=== PATIENT | male | born 1950 | race Caucasian/White ===

== ENCOUNTER 2020-03-27 11:13 | Emergency (ER) | payer MEDICARE, OTHER, SELFPAY ==
[2020-03-27 11:19] VITALS: BP 155/92; PULSE 80; RESP 21; TEMP 36.4; BMI 29.5
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
[2020-03-27 11:26] VITALS: O2SAT 93
--- NOTE | 2020-03-27 11:26 | NURSING ---
NO OLD EKGS
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
--- NOTE | 2020-03-27 11:27 | NURSING ---
CALLED [facility]QU[facility], 30 MIN ETA
[2020-03-27 11:28] VITALS: O2SAT 95
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
[2020-03-27] MEDS: Ondansetron 4 MG/2 ML Vial IV (11:33)
[2020-03-27] MEDS: 0.9% Normal Saline 1,000 ML 1000 ML IV (11:33)
[2020-03-27] MEDS: Morphine 4 MG/ML Syringe IV (11:33)
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
[2020-03-27 11:51] LABS: Prothrombin Time (Protime)PT. 13.1 SECONDS (11.7-14.9)
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
[2020-03-27 11:53] LABS: Partial Thromboplast Time 24.3 Seconds (24.1-36.2)
[2020-03-27 11:54] LABS: Hematocrit 47.2 % (40-54); Hemoglobin 15.5 g/dL (13.0-16.5); Mean Corp Hgb Conc 32.8 g/dL (32-36); Mean Corpuscular Hgb 30.8 pg (27.0-32.0); Mean Corpuscular Volume 93.7 fL (80-94); Mean Platelet Vol. 9.3 fl (6.2-12.0); Platelet Count 304 K/mm3 (150-450); RBC Distribution Width CV 12.8 % (11.6-14.6); Red Blood Count 5.04 M/mm3 (4.6-6.2); White Blood Count 23.6 K/mm3 (4.4-11.0)
[2020-03-27 12:00] LABS: AST(SGOT) 30 U/L (15-37); Alanine Aminotransfer ALT/SGPT 32 U/L (16-61); Albumin, Serum 3.9 g/dL (3.2-5.0); Alkaline Phosphatase 80 U/L (45-117); Anion Gap 8 (5-15); BUN 17 mg/dL (7-18); BUN/Creat Ratio 14.2 RATIO (10-20); Chloride 104 mmol/L (98-107); EST Glomerular Filtration Rate 64 mL/min (>60); Est Glom Filt Rate - Afr Amer 77 mL/min (>60); Estimated Creatinine Clearance 58.92 ml/min; Globulin 3.9 g/dL (2.2-4.2); Glucose 136 mg/dL (74-106); Lipase 181 U/L (73-393); Potassium 3.4 mmol/L (3.5-5.1); Protein, Total 7.8 g/dL (6.4-8.2); Sodium Level 139 mmol/L (136-145)
[2020-03-27 12:03] VITALS: BP 130/84; PULSE 91; RESP 20; O2SAT 95
[2020-03-27] MEDS: Diphth,Pertuss(Acell),Tet Vac 0.5 ML Vial IM (12:06)
[2020-03-27] MEDS: Cefazolin 1 GM/50 ML BAG IV (12:07)
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
== END 2020-03-27 12:50 | disposition short-term general hospital (02) ==
LOC: ED 11:44
PROVIDERS: Emergency Provider Emergency Medicine; PCP Family Medicine
DX: S09.90XA Unspecified injury of head, initial encounter (principal); G89.11 Acute pain due to trauma; M54.5 Low back pain; S22.20XA Unspecified fracture of sternum, initial encounter for closed fracture; S60.222A Contusion of left hand, initial encounter; S70.01XA Contusion of right hip, initial encounter; S70.02XA Contusion of left hip, initial encounter; S61.412A Laceration without foreign body of left hand, initial encounter; V43.52XA Car driver injured in collision with other type car in traffic accident, initial encounter; Y92.410 Unspecified street and highway as the place of occurrence of the external cause; Z23 Encounter for immunization; Z87.891 Personal history of nicotine dependence
CPT/HCPCS: 70450; 71260; 72125; 73080; 73130; 74177; 80053; 80320; 83690; 84484; 85027; 85610; 85730; 90715; 93005; 96365; 96375; 99285; J7030; Q9967; A4216; G0480; J2405

== ENCOUNTER 2020-04-02 14:56 | Inpatient (IN) | payer MEDICARE, OTHER, SELFPAY ==
[2020-04-02 15:12] VITALS: BP 148/97; PULSE 90; RESP 16; TEMP 36.4; O2SAT 95; BMI 28.5
[2020-04-02 15:55] VITALS: BMI 28.5
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
[2020-04-02] MEDS: oxyCODONE 5 MG Tablet PO ×2 (18:48→22:51)
[2020-04-02 19:10] VITALS: O2SAT 95
[2020-04-02 21:00] VITALS: PULSE 90; RESP 16; TEMP 36.6; O2SAT 95; O2SAT 96
[2020-04-02] MEDS: Senna/Docusate Sodium 1 Tablet 2 TABLET PO (21:15)
[2020-04-02] MEDS: Magnesium Hydroxide 30 ML UDC PO (21:15)
[2020-04-02] MEDS: Acetaminophen 500 MG Tablet 1000 MG PO (21:15)
[2020-04-02] MEDS: Enoxaparin 30 MG/0.3 ML Syringe SC (21:15)
[2020-04-02] MEDS: BACITRACIN 15 GM Tube 1 APPLIC TOPICAL (21:16)
[2020-04-02] MEDS: cycloBENZAPRine HCl 10 MG Tablet PO (21:18)
[2020-04-02 23:03] LABS: Bacteria 0 SEEN /hpf (None Seen); Mucous, Urine 0 SEEN /hpf (<or=2+); Squamous Epithelial Cells - UA 0 SEEN /hpf (0-5)
[2020-04-02 23:07] LABS: Color, Urine Yellow (Yellow); Glucose, Dipstick Normal (Normal); Ketone-Dipstick Negative (Negative); Leukocyte Esterase-Dipstick 25 /ul (Negative); Nitrite-Dipstick Negative (Negative); Occult Blood-Urine 150 /ul (Negative); Protein-Dipstick 30 mg/dl (Negative); Specific Gravity, Urine 1.025 (1.002-1.030); Urine Bilirubin Dipstick Negative (Negative); Urine Clarity Clear (Clear); Urine Urobilinogen Normal (Normal)
[2020-04-02 23:21] LABS: Red Blood Cells-Urine 5-10 SEEN /hpf (0-5); White Blood Cells 0-5 SEEN /hpf (0-5)
[2020-04-03 03:35] VITALS: BP 151/91; PULSE 85; RESP 16; TEMP 36.6; O2SAT 69
[2020-04-03] MEDS: oxyCODONE 5 MG Tablet PO ×2 (03:48→07:56)
--- NOTE | 2020-04-03 04:21 | NURSING ---
pt awake and medicated for pain. staff made several attempts to to get pt oob to the bsc and pt unable to tolerate the pain. pt was uncomfortable with hob up greater than 25 degrees. pt reports that the pain is intense to the rt hip. abraded areas to the lt elbow and upper arm were cleansed and dressed to protect the scabs from rubbing off
[2020-04-03] MEDS: BACITRACIN 15 GM Tube 1 APPLIC TOPICAL ×2 (05:08→20:52)
[2020-04-03] MEDS: Acetaminophen 500 MG Tablet 1000 MG PO ×3 (05:10→20:53)
[2020-04-03] MEDS: cycloBENZAPRine HCl 10 MG Tablet PO ×3 (05:10→20:54)
[2020-04-03] MEDS: Lidocaine 5% Patch 1 PATCH TOPICAL (07:54)
[2020-04-03] MEDS: Tamsulosin HCl 0.4 MG Capsule PO (07:55)
[2020-04-03] MEDS: Polyethylene Glycol 3350 17 GM PACKET PO (07:55)
[2020-04-03] MEDS: Senna/Docusate Sodium 1 Tablet 2 TABLET PO ×2 (07:55→20:53)
[2020-04-03] MEDS: Enoxaparin 30 MG/0.3 ML Syringe SC ×2 (07:56→20:53)
[2020-04-03 08:32] LABS: Hematocrit 39.2 % (40-54); Hemoglobin 12.6 g/dL (13.0-16.5); Mean Corp Hgb Conc 32.1 g/dL (32-36); Mean Corpuscular Hgb 30.3 pg (27.0-32.0); Mean Corpuscular Volume 94.2 fL (80-94); Mean Platelet Vol. 8.7 fl (6.2-12.0); Platelet Count 295 K/mm3 (150-450); RBC Distribution Width CV 13.2 % (11.6-14.6); RBC Distribution Width SD 45.6 fl (35.1-43.9); Red Blood Count 4.16 M/mm3 (4.6-6.2); White Blood Count 13.9 K/mm3 (4.4-11.0)
[2020-04-03 09:03] LABS: ALB/GLOB Ratio 0.8 RATIO (0.9-2.4); AST(SGOT) 101 U/L (15-37); Alanine Aminotransfer ALT/SGPT 169 U/L (16-61); Albumin, Serum 3.1 g/dL (3.2-5.0); Alkaline Phosphatase 74 U/L (45-117); Anion Gap 5 (5-15); BUN 18 mg/dL (7-18); BUN/Creat Ratio 22.4 RATIO (10-20); Calcium,Total 8.6 mg/dL (8.5-10.1); Chloride 104 mmol/L (98-107); EST Glomerular Filtration Rate 101 mL/min (>60); Est Glom Filt Rate - Afr Amer 122 mL/min (>60); Estimated Creatinine Clearance 88.38 ml/min; Glucose 173 mg/dL (74-106); Magnesium 2.5 mg/dL (1.6-2.6); Phosphorus 3.1 mg/dL (2.5-4.9); Potassium 3.9 mmol/L (3.5-5.1); Protein, Total 7.1 g/dL (6.4-8.2); Sodium Level 137 mmol/L (136-145)
--- NOTE | 2020-04-03 09:49 | NURSING ---
Per Dr. Gilbert Oxy increased to 10mg q4hr PRN.
[2020-04-03 10:00] VITALS: BP 145/85; PULSE 95; RESP 18; TEMP 37.3; O2SAT 95
--- NOTE | 2020-04-03 10:19 | NURSING ---
TONYA for Dr. Pinzon and Dr. Tao's office, asking if Rehab could send xrays, being the patient is currently immobile and is to F/U in one week at their facility. Waiting for call back.
--- NOTE | 2020-04-03 10:21 | NURSING ---
Spoke with Dr. Vidal office, received approval to have Xrays sent on disc of 3 views of the right ankle, to their facility. Will make Dr. Gilbert aware.
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
--- NOTE | 2020-04-03 11:20 | NURSING ---
Dr. Tao's office returned called stating xray for left hand 3 view can be ordered and to send xray on disc to their facility.
[2020-04-03] MEDS: oxyCODONE 5 MG Tablet 10 MG PO (11:51)
[2020-04-03 12:16] VITALS: O2SAT 96
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
[2020-04-03] MEDS: Bisacodyl 5 MG Tablet 10 MG PO (15:33)
[2020-04-03] MEDS: predniSONE 20 MG Tablet 60 MG PO (15:34)
[2020-04-03 15:43] LABS: Hemoglobin A1c 5.6 % (3.8-5.6)
[2020-04-03 16:36] LABS: Bedside Glucose 96 mg/dL (70-110)
[2020-04-03 20:31] LABS: Bedside Glucose 157 mg/dL (70-110)
[2020-04-03] MEDS: Meloxicam 7.5 MG Tablet PO (20:53)
[2020-04-03] MEDS: Zolpidem Tartrate 5 MG Tablet PO (20:54)
[2020-04-03 20:55] VITALS: BP 145/91; PULSE 87; RESP 20; TEMP 36.4; O2SAT 95
[2020-04-04] MEDS: oxyCODONE 5 MG Tablet 10 MG PO ×2 (00:06→13:25)
--- NOTE | 2020-04-04 00:57 | NURSING ---
pt still has had no bm and dulcolax suppository was given. pt started smearing stool. pt remains painful with movement and is encouraged to have hob elevated to 30 degrees to to improve pt mobility to his back. 0030 pt requested to be placed back on the bedpan, and only had a small amt of liquid stool. pt abd is soft and nontender with bs present x's 4 quads. pt denied nausea. pt is reluctant to turn in the bed and coccyx is noted to be more red than yesterday. new mepilex was applied to pt bottom d/t being soiled with stool.
--- NOTE | 2020-04-04 01:15 | NURSING ---
pt removed from bedpan and a small amt of liquid stool was noted, when cleansing pt is noted to have some edema to his penis which was not noted yesterday. pt repositioned to his lt side for comfort
[2020-04-04] MEDS: Acetaminophen 500 MG Tablet 1000 MG PO ×3 (05:29→21:51)
[2020-04-04] MEDS: BACITRACIN 15 GM Tube 1 APPLIC TOPICAL ×2 (05:29→21:51)
[2020-04-04] MEDS: cycloBENZAPRine HCl 10 MG Tablet PO ×3 (05:30→21:52)
[2020-04-04 06:35] LABS: Bedside Glucose 109 mg/dL (70-110)
[2020-04-04 07:01] VITALS: O2SAT 94
[2020-04-04 08:32] VITALS: BP 155/99; PULSE 94; RESP 16; TEMP 36.6; O2SAT 100
[2020-04-04] MEDS: Polyethylene Glycol 3350 17 GM PACKET PO (08:33)
[2020-04-04] MEDS: Lidocaine 5% Patch 1 PATCH TOPICAL (08:35)
[2020-04-04] MEDS: Senna/Docusate Sodium 1 Tablet 2 TABLET PO ×2 (08:35→21:52)
[2020-04-04] MEDS: Pantoprazole Sodium 40 MG Tablet PO (08:36)
[2020-04-04] MEDS: predniSONE 20 MG Tablet 60 MG PO (08:36)
[2020-04-04] MEDS: Meloxicam 7.5 MG Tablet PO ×2 (08:36→21:52)
[2020-04-04] MEDS: Tamsulosin HCl 0.4 MG Capsule PO (08:37)
[2020-04-04] MEDS: Enoxaparin 30 MG/0.3 ML Syringe SC ×2 (08:37→21:52)
--- NOTE | 2020-04-04 10:21 | CASEMGMT ---
Social Work IDT met with patient and via conference call for Team meeting. Discussed patient's progress in therapy. Pt is very painful. Therapy working pt to sit EOB, but cannot sitting upward. Pt is x2 assist for bed mobility and working on ROM for UE and LE. Explained Medicare approved 17 days with [facility] 04/19. The goal is for pt to return home with . Will ReTeam and continue to follow. Laura Cedillo ,CONSULTING TECHNICAL MANAGER OCCUPATIONAL HYGIENIST
--- NOTE | 2020-04-04 11:16 | NURSING ---
Dr Jackson consulted
[2020-04-04] MEDS: Gabapentin 300 MG Capsule PO ×2 (12:19→17:13)
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
[2020-04-04] MEDS: Nystatin Powder 15gm Bottle 1 APPLIC TOPICAL ×2 (15:53→21:52)
[2020-04-04 16:35] LABS: Bedside Glucose 148 mg/dL (70-110)
[2020-04-04] MEDS: Magnesium Citrate 300 ML PO (18:57)
[2020-04-04 19:17] VITALS: BP 134/84; PULSE 98; RESP 18; TEMP 36.7; O2SAT 94
[2020-04-04 19:25] VITALS: PULSE 98; RESP 18; O2SAT 94
[2020-04-04] MEDS: Menthol/Lanolin/Calamine/Znox 113 GM Tube 1 APPLIC TOPICAL (21:52)
[2020-04-04] MEDS: Zolpidem Tartrate 5 MG Tablet PO (21:52)
--- NOTE | 2020-04-05 02:19 | NURSING ---
Reviewed and agree with FRUIT PRESERVER documentation and charting.
[2020-04-05] MEDS: cycloBENZAPRine HCl 10 MG Tablet PO ×3 (06:05→21:45)
[2020-04-05] MEDS: Acetaminophen 500 MG Tablet 1000 MG PO ×3 (06:05→21:43)
[2020-04-05] MEDS: BACITRACIN 15 GM Tube 1 APPLIC TOPICAL ×2 (06:06→21:45)
[2020-04-05 07:47] VITALS: BP 147/93; PULSE 90; RESP 18; TEMP 36.4; O2SAT 94
[2020-04-05] MEDS: Polyethylene Glycol 3350 17 GM PACKET PO (09:05)
[2020-04-05] MEDS: oxyCODONE 5 MG Tablet 10 MG PO (09:05)
[2020-04-05] MEDS: Lidocaine 5% Patch 1 PATCH TOPICAL (09:05)
[2020-04-05] MEDS: Enoxaparin 30 MG/0.3 ML Syringe SC ×2 (09:05→21:57)
[2020-04-05] MEDS: Pantoprazole Sodium 40 MG Tablet PO (09:06)
[2020-04-05] MEDS: Gabapentin 300 MG Capsule PO ×3 (09:06→17:55)
[2020-04-05] MEDS: predniSONE 20 MG Tablet 60 MG PO (09:06)
[2020-04-05] MEDS: Senna/Docusate Sodium 1 Tablet 2 TABLET PO ×2 (09:08→21:44)
[2020-04-05] MEDS: Tamsulosin HCl 0.4 MG Capsule PO (09:09)
[2020-04-05] MEDS: Menthol/Lanolin/Calamine/Znox 113 GM Tube 1 APPLIC TOPICAL ×2 (09:09→21:48)
[2020-04-05] MEDS: Nystatin Powder 15gm Bottle 1 APPLIC TOPICAL ×2 (09:09→21:44)
[2020-04-05] MEDS: Meloxicam 7.5 MG Tablet PO ×2 (09:10→21:45)
[2020-04-05] MEDS: Magnesium Hydroxide 30 ML UDC PO (09:13)
[2020-04-05 19:31] VITALS: BP 169/93; PULSE 98; RESP 18; TEMP 37.1; O2SAT 95
[2020-04-05 21:23] VITALS: BP 138/88; PULSE 92
[2020-04-05] MEDS: Zolpidem Tartrate 5 MG Tablet PO (21:45)
[2020-04-06] MEDS: cycloBENZAPRine HCl 10 MG Tablet PO ×3 (05:39→22:14)
[2020-04-06] MEDS: Acetaminophen 500 MG Tablet 1000 MG PO ×3 (05:39→22:15)
[2020-04-06] MEDS: BACITRACIN 15 GM Tube 1 APPLIC TOPICAL ×2 (05:40→22:13)
[2020-04-06 07:11] LABS: Bedside Glucose 97 mg/dL (70-110)
[2020-04-06 08:10] VITALS: BP 139/80; PULSE 77; RESP 16; TEMP 36.8; O2SAT 94
[2020-04-06] MEDS: Gabapentin 300 MG Capsule PO ×3 (08:31→17:27)
[2020-04-06] MEDS: predniSONE 20 MG Tablet 60 MG PO (08:32)
[2020-04-06] MEDS: Lidocaine 5% Patch 1 PATCH TOPICAL (08:32)
[2020-04-06] MEDS: Polyethylene Glycol 3350 17 GM PACKET PO (08:34)
[2020-04-06] MEDS: Tamsulosin HCl 0.4 MG Capsule PO (08:34)
[2020-04-06] MEDS: Enoxaparin 30 MG/0.3 ML Syringe SC ×2 (08:35→22:14)
[2020-04-06] MEDS: Pantoprazole Sodium 40 MG Tablet PO (08:35)
[2020-04-06] MEDS: Senna/Docusate Sodium 1 Tablet 2 TABLET PO ×2 (08:35→22:15)
[2020-04-06] MEDS: Meloxicam 7.5 MG Tablet PO ×2 (08:36→22:14)
[2020-04-06] MEDS: oxyCODONE 5 MG Tablet 10 MG PO ×3 (08:56→22:14)
[2020-04-06] MEDS: Menthol/Lanolin/Calamine/Znox 113 GM Tube 1 APPLIC TOPICAL ×2 (08:57→22:13)
[2020-04-06] MEDS: Nystatin Powder 15gm Bottle 1 APPLIC TOPICAL ×2 (08:57→22:14)
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
[2020-04-06] MEDS: busPIRone 5 MG Tablet PO ×2 (17:27→22:13)
[2020-04-06 22:00] VITALS: BP 139/86; PULSE 93; RESP 17; TEMP 37.2; O2SAT 97
[2020-04-06] MEDS: Zolpidem Tartrate 5 MG Tablet PO (22:13)
[2020-04-07 06:26] LABS: Bedside Glucose 82 mg/dL (70-110)
[2020-04-07] MEDS: BACITRACIN 15 GM Tube 1 APPLIC TOPICAL ×2 (06:53→22:00)
[2020-04-07] MEDS: busPIRone 5 MG Tablet PO ×3 (06:53→22:00)
[2020-04-07] MEDS: cycloBENZAPRine HCl 10 MG Tablet PO ×3 (06:54→21:59)
[2020-04-07] MEDS: oxyCODONE 5 MG Tablet 10 MG PO ×3 (06:54→21:58)
[2020-04-07] MEDS: Acetaminophen 500 MG Tablet 1000 MG PO ×3 (06:54→21:57)
[2020-04-07] MEDS: Enoxaparin 30 MG/0.3 ML Syringe SC ×2 (07:40→21:59)
[2020-04-07] MEDS: predniSONE 20 MG Tablet 60 MG PO (07:40)
[2020-04-07] MEDS: Polyethylene Glycol 3350 17 GM PACKET PO (07:40)
[2020-04-07] MEDS: Gabapentin 300 MG Capsule PO ×3 (07:41→17:13)
[2020-04-07] MEDS: Tamsulosin HCl 0.4 MG Capsule PO (07:41)
[2020-04-07] MEDS: Lidocaine 5% Patch 1 PATCH TOPICAL (07:42)
[2020-04-07] MEDS: Meloxicam 7.5 MG Tablet PO ×2 (07:42→21:59)
[2020-04-07] MEDS: Senna/Docusate Sodium 1 Tablet 2 TABLET PO ×2 (07:43→21:57)
[2020-04-07] MEDS: Pantoprazole Sodium 40 MG Tablet PO (07:43)
[2020-04-07] MEDS: Menthol/Lanolin/Calamine/Znox 113 GM Tube 1 APPLIC TOPICAL ×2 (07:43→21:30)
[2020-04-07] MEDS: Nystatin Powder 15gm Bottle 1 APPLIC TOPICAL ×2 (07:44→21:59)
[2020-04-07 08:41] VITALS: BP 149/93; PULSE 74; RESP 16; TEMP 36.5; O2SAT 97
[2020-04-07 19:29] VITALS: BP 152/85; PULSE 90; RESP 17; TEMP 36.7; O2SAT 95
[2020-04-07 22:00] VITALS: PULSE 88; RESP 17; O2SAT 95
[2020-04-07] MEDS: Zolpidem Tartrate 5 MG Tablet PO (22:00)
[2020-04-08] MEDS: BACITRACIN 15 GM Tube 1 APPLIC TOPICAL ×2 (05:51→22:13)
[2020-04-08] MEDS: oxyCODONE 5 MG Tablet 10 MG PO ×3 (05:52→22:15)
[2020-04-08] MEDS: Acetaminophen 500 MG Tablet 1000 MG PO ×3 (05:52→22:14)
[2020-04-08] MEDS: busPIRone 5 MG Tablet PO ×3 (05:52→22:13)
[2020-04-08] MEDS: cycloBENZAPRine HCl 10 MG Tablet PO ×3 (05:52→22:14)
[2020-04-08] MEDS: Pantoprazole Sodium 40 MG Tablet PO (07:50)
[2020-04-08] MEDS: Gabapentin 300 MG Capsule PO (07:51)
[2020-04-08] MEDS: predniSONE 20 MG Tablet PO (07:51)
[2020-04-08] MEDS: Menthol/Lanolin/Calamine/Znox 113 GM Tube 1 APPLIC TOPICAL ×2 (07:51→22:13)
[2020-04-08] MEDS: Nystatin Powder 15gm Bottle 1 APPLIC TOPICAL ×2 (07:51→21:40)
[2020-04-08] MEDS: Meloxicam 7.5 MG Tablet PO ×2 (07:51→22:14)
[2020-04-08] MEDS: Enoxaparin 30 MG/0.3 ML Syringe SC ×2 (07:52→22:14)
[2020-04-08] MEDS: Senna/Docusate Sodium 1 Tablet 2 TABLET PO ×2 (07:53→22:14)
[2020-04-08 08:00] VITALS: BP 150/92; PULSE 82; RESP 16; TEMP 36.6; O2SAT 94
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
[2020-04-08] MEDS: Lidocaine 5% Patch 1 PATCH TOPICAL (11:17)
[2020-04-08] MEDS: Tamsulosin HCl 0.4 MG Capsule PO (11:17)
[2020-04-08] MEDS: Gabapentin 600 MG Tablet PO ×2 (12:12→16:50)
--- NOTE | 2020-04-08 15:40 | NURSING ---
Sat up on edge of bed for 5 minutes with max assist of 2 staff. Tolerated well but c/o nerve pain to right buttock despite repositioning.
[2020-04-08 19:29] VITALS: BP 116/76; PULSE 100; RESP 17; TEMP 37.1; O2SAT 95
[2020-04-08 22:00] VITALS: PULSE 98; RESP 16; O2SAT 95
[2020-04-08] MEDS: Zolpidem Tartrate 5 MG Tablet PO (22:12)
[2020-04-09] MEDS: oxyCODONE 5 MG Tablet 10 MG PO ×3 (06:12→22:21)
[2020-04-09] MEDS: cycloBENZAPRine HCl 10 MG Tablet PO ×2 (06:13→13:39)
[2020-04-09] MEDS: busPIRone 5 MG Tablet PO ×2 (06:13→14:29)
[2020-04-09] MEDS: Acetaminophen 500 MG Tablet 1000 MG PO ×3 (06:13→22:21)
[2020-04-09] MEDS: BACITRACIN 15 GM Tube 1 APPLIC TOPICAL ×2 (06:13→22:20)
[2020-04-09 07:53] VITALS: BP 121/70; PULSE 85; RESP 16; TEMP 36.8; O2SAT 96
[2020-04-09] MEDS: predniSONE 20 MG Tablet PO (07:55)
[2020-04-09] MEDS: Gabapentin 600 MG Tablet PO ×3 (07:55→16:08)
[2020-04-09] MEDS: Tamsulosin HCl 0.4 MG Capsule PO (07:55)
[2020-04-09] MEDS: Lidocaine 5% Patch 1 PATCH TOPICAL (07:55)
[2020-04-09] MEDS: Enoxaparin 30 MG/0.3 ML Syringe SC ×2 (07:55→22:20)
[2020-04-09] MEDS: Senna/Docusate Sodium 1 Tablet 2 TABLET PO ×2 (07:56→22:21)
[2020-04-09] MEDS: Pantoprazole Sodium 40 MG Tablet PO (07:56)
[2020-04-09] MEDS: Meloxicam 7.5 MG Tablet PO ×2 (07:56→22:21)
[2020-04-09] MEDS: Menthol/Lanolin/Calamine/Znox 113 GM Tube 1 APPLIC TOPICAL ×2 (07:58→22:20)
[2020-04-09] MEDS: Nystatin Powder 15gm Bottle 1 APPLIC TOPICAL ×2 (07:59→22:58)
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
[2020-04-09 19:22] VITALS: BP 120/72; PULSE 94; RESP 16; TEMP 36.6; O2SAT 98
[2020-04-09 22:00] VITALS: PULSE 86; RESP 17; O2SAT 95
[2020-04-09] MEDS: Zolpidem Tartrate 5 MG Tablet PO (22:19)
[2020-04-09] MEDS: Pregabalin 50 MG Capsule 100 MG PO (22:20)
[2020-04-09] MEDS: tiZANidine HCl 2 MG Tablet PO (22:21)
[2020-04-10] MEDS: tiZANidine HCl 2 MG Tablet PO ×3 (05:43→20:18)
[2020-04-10] MEDS: Acetaminophen 500 MG Tablet 1000 MG PO ×3 (05:43→20:16)
[2020-04-10] MEDS: BACITRACIN 15 GM Tube 1 APPLIC TOPICAL ×2 (05:44→20:19)
[2020-04-10] MEDS: oxyCODONE 5 MG Tablet 10 MG PO ×3 (05:46→21:49)
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
[2020-04-10] MEDS: Lidocaine 5% Patch 1 PATCH TOPICAL (08:16)
[2020-04-10] MEDS: Senna/Docusate Sodium 1 Tablet 2 TABLET PO ×2 (08:17→20:16)
[2020-04-10] MEDS: Tamsulosin HCl 0.4 MG Capsule PO (08:17)
[2020-04-10] MEDS: Pregabalin 50 MG Capsule 100 MG PO ×2 (08:17→21:49)
[2020-04-10] MEDS: predniSONE 20 MG Tablet PO (08:17)
[2020-04-10] MEDS: Meloxicam 7.5 MG Tablet PO ×2 (08:17→20:16)
[2020-04-10] MEDS: Enoxaparin 30 MG/0.3 ML Syringe SC ×2 (08:17→20:18)
[2020-04-10] MEDS: Pantoprazole Sodium 40 MG Tablet PO (08:17)
[2020-04-10] MEDS: Menthol/Lanolin/Calamine/Znox 113 GM Tube 1 APPLIC TOPICAL ×2 (08:18→20:18)
[2020-04-10] MEDS: Nystatin Powder 15gm Bottle 1 APPLIC TOPICAL ×2 (08:18→20:17)
[2020-04-10 08:30] VITALS: BP 139/84; PULSE 77; RESP 16; TEMP 36.8; O2SAT 97
[2020-04-10 19:39] VITALS: BP 120/69; PULSE 95; RESP 18; TEMP 36.6; O2SAT 98
[2020-04-10 19:45] VITALS: PULSE 95; RESP 18; O2SAT 98
[2020-04-10] MEDS: Zolpidem Tartrate 5 MG Tablet PO (21:49)
[2020-04-10 21:56] LABS: Bedside Glucose 184 mg/dL (70-110)
--- NOTE | 2020-04-11 02:05 | NURSING ---
Reviewed and agree with FILING MACHINE OPERATOR documentation and charting.
[2020-04-11] MEDS: BACITRACIN 15 GM Tube 1 APPLIC TOPICAL ×2 (05:35→21:24)
[2020-04-11] MEDS: tiZANidine HCl 2 MG Tablet PO ×3 (05:35→21:23)
[2020-04-11] MEDS: oxyCODONE 5 MG Tablet 10 MG PO ×3 (05:37→23:00)
[2020-04-11] MEDS: Acetaminophen 500 MG Tablet 1000 MG PO ×3 (05:38→21:23)
[2020-04-11 07:58] VITALS: BP 138/81; PULSE 82; RESP 16; TEMP 37.1; O2SAT 98
[2020-04-11] MEDS: Pantoprazole Sodium 40 MG Tablet PO (08:02)
[2020-04-11] MEDS: Pregabalin 50 MG Capsule 100 MG PO ×2 (08:02→21:23)
[2020-04-11] MEDS: Enoxaparin 30 MG/0.3 ML Syringe SC ×2 (08:03→21:23)
[2020-04-11] MEDS: Meloxicam 7.5 MG Tablet PO ×2 (08:03→21:23)
[2020-04-11] MEDS: Lidocaine 5% Patch 1 PATCH TOPICAL (08:03)
[2020-04-11] MEDS: Senna/Docusate Sodium 1 Tablet 2 TABLET PO ×2 (08:03→21:23)
[2020-04-11] MEDS: Tamsulosin HCl 0.4 MG Capsule PO (08:03)
[2020-04-11] MEDS: predniSONE 10 MG Tablet PO (08:03)
[2020-04-11] MEDS: Nystatin Powder 15gm Bottle 1 APPLIC TOPICAL ×2 (08:04→21:25)
[2020-04-11] MEDS: Menthol/Lanolin/Calamine/Znox 113 GM Tube 1 APPLIC TOPICAL ×2 (08:04→21:24)
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
--- NOTE | 2020-04-11 11:03 | PN_ITS ---
Progress Note Asked by PT to see the pt with new complaint of BL numbness in the legs when sitting this morning. Also had severe pain and was not able to tolerate sitting in the chair. He is comfortable lying in bed on his back. He is c/o severe pain in the R buttock with sitting. He also gets pain in the R buttock and hip with SLR on the Left. He has no fecal incontinence and he has a davis for urine retention. I reviewed the results of the MRI without contrast done at [facility]. Alert, oriented x3, no apparent distress when lying flat on his back in bed. If you sit him up at all he complains of severe pain in the right buttock. He has pain in the R buttock with SLR on the left at about 70 degrees. SLR on the right was negative. Negative Fabere test BL He has intact sensation to pinprick from the toes to the groin. He has a los of Vibratory sense in the R patella, R tibial plateau and the R medial malleolus. Babinski's are down going BL No ankle clonus He has good strength in both legs but resists active leg extension of the left leg due to pain in the R buttock. He has not been able to progress in therapy due to the pain. He is currently taking Lyrica 100 mg p.o. twice daily, meloxicam 15 mg daily, Tylenol 1 g every 8 hours and he is finishing a 10 day course of Prednisone. Impressions 1. Intractable low back and R buttock pain with loss of vibratory sense of the R leg and + SLR on the left - not progressing in therapy and since the steroids were tapered down from 60 mg after 5 days of 60 mg the pain has been getting worse. MRI of the Lumbar spine with IV contrast today I reviewed the XRAYS of the LS spine done this week and there is no malalignment and no significant scoliosis. He has disc space narrowing at multiple levels. Will contact Dr. Salvador after the results of the MRI become available STROKE Vital Signs/Narrative: Vital Signs Temp Pulse Resp BP Pulse Ox 04/11/20 07:58 98.8 F 82 16 138/81 H 98 Inpatient E&M: 97070 Subs Hosp L2
--- NOTE | 2020-04-11 14:50 | NURSING ---
off floor to mri
--- NOTE | 2020-04-11 16:21 | NURSING ---
back to floor from mri
[2020-04-11 20:50] VITALS: BP 137/87; PULSE 92; RESP 16; RESP 18; TEMP 36.6; O2SAT 95; O2SAT 96
[2020-04-11] MEDS: Zolpidem Tartrate 5 MG Tablet PO (23:00)
[2020-04-12] MEDS: Acetaminophen 500 MG Tablet 1000 MG PO ×2 (05:27→13:34)
[2020-04-12] MEDS: oxyCODONE 5 MG Tablet 10 MG PO (05:28)
[2020-04-12] MEDS: tiZANidine HCl 2 MG Tablet PO ×3 (05:28→22:47)
[2020-04-12] MEDS: BACITRACIN 15 GM Tube 1 APPLIC TOPICAL ×2 (05:28→22:49)
[2020-04-12 07:36] VITALS: BP 128/72; PULSE 81; RESP 16; TEMP 36.6; O2SAT 98
[2020-04-12] MEDS: Enoxaparin 30 MG/0.3 ML Syringe SC ×2 (08:07→22:49)
[2020-04-12] MEDS: Meloxicam 7.5 MG Tablet PO (08:07)
[2020-04-12] MEDS: Lidocaine 5% Patch 1 PATCH TOPICAL (08:07)
[2020-04-12] MEDS: Pantoprazole Sodium 40 MG Tablet PO (08:07)
[2020-04-12] MEDS: predniSONE 10 MG Tablet PO (08:07)
[2020-04-12] MEDS: Senna/Docusate Sodium 1 Tablet 2 TABLET PO ×2 (08:07→22:47)
[2020-04-12] MEDS: Tamsulosin HCl 0.4 MG Capsule PO (08:07)
[2020-04-12] MEDS: Menthol/Lanolin/Calamine/Znox 113 GM Tube 1 APPLIC TOPICAL ×2 (08:18→22:49)
[2020-04-12] MEDS: Nystatin Powder 15gm Bottle 1 APPLIC TOPICAL ×2 (08:21→22:48)
[2020-04-12] MEDS: Pregabalin 50 MG Capsule 100 MG PO (08:21)
[2020-04-12] MEDS: Polyethylene Glycol 3350 17 GM PACKET PO (08:23)
[2020-04-12 08:43] VITALS: PULSE 81; RESP 16; O2SAT 98
[2020-04-12] MEDS: predniSONE 20 MG Tablet 60 MG PO (09:52)
--- NOTE | 2020-04-12 10:22 | CASEMGMT ---
Social Work IDT met with patient and via conference call for Team meeting. Discussed patient's progress in therapy. Pt is x2 assist to get to EOB, sitting upright causes increased pain, mod-max x2 for tx to chair, can roll in bed SBA, total for ADLS, mod for UE dressing in bed and for grooming. Completing ROM in UE/LE. Pt continues to be very painful with any movement. Dr. tabatha Ortiz consult for possible epidural tomorrow. Pt continues to have good motivation to improve. Laying in bed is only comfortable position. Pt's cath remains in place, which is new. Explained Medicare benefit with 17 approved days with DC date 04/19. Discussed patient's DC plans. IDT recommending SNF as he is x2 assist and needs continued therapy and nursing care. Pt and adamant about pt returning home with and will hire aides to assist. Emailed list of nonskilled HHC agencies to to begin calling. Pt inquired about appeal rights. Explained appeal rights. Provided information. Pt indicated he will appeal. SW to assist with skilled HHC and needed DME. Will continue to follow. Laura Cedillo, CLEOPAT[employer] PLATE WASHER
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
[2020-04-12] MEDS: 0.9% Saline Lock 10 ML Syringe IV ×2 (13:40→22:50)
[2020-04-12 19:10] VITALS: BP 122/59; PULSE 94; RESP 18; TEMP 36.4; O2SAT 99
[2020-04-12] MEDS: Pregabalin 50 MG Capsule 150 MG PO (22:48)
[2020-04-12] MEDS: Zolpidem Tartrate 5 MG Tablet PO (22:49)
[2020-04-13] MEDS: oxyCODONE 5 MG Tablet 10 MG PO (06:46)
[2020-04-13] MEDS: tiZANidine HCl 2 MG Tablet PO ×2 (06:47→22:45)
[2020-04-13] MEDS: BACITRACIN 15 GM Tube 1 APPLIC TOPICAL ×2 (06:47→22:46)
[2020-04-13 07:49] VITALS: BP 125/77; PULSE 85; RESP 16; TEMP 36.6; O2SAT 96
[2020-04-13] MEDS: Pregabalin 50 MG Capsule 150 MG PO ×2 (09:04→22:46)
[2020-04-13] MEDS: Tamsulosin HCl 0.4 MG Capsule PO (09:04)
[2020-04-13] MEDS: predniSONE 20 MG Tablet 60 MG PO (09:05)
[2020-04-13] MEDS: Pantoprazole Sodium 40 MG Tablet PO (09:07)
[2020-04-13] MEDS: Menthol/Lanolin/Calamine/Znox 113 GM Tube 1 APPLIC TOPICAL ×2 (09:07→22:46)
[2020-04-13] MEDS: Nystatin Powder 15gm Bottle 1 APPLIC TOPICAL ×2 (09:08→22:45)
[2020-04-13] MEDS: Lidocaine 5% Patch 1 PATCH TOPICAL (09:09)
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
--- NOTE | 2020-04-13 12:11 | NURSING ---
Consent signed by Dr. Ortiz and patient and patient taken down to surgery for injection to back.
--- NOTE | 2020-04-13 12:12 | RAD_ITS ---
STUDY: X-RAY - LUMBAR SPINE REASON FOR EXAM: Male, 69 years old. CAUDAL BLOCK TECHNIQUE: 1 view(s) of the lumbar spine were obtained. COMPARISON: None FINDINGS: Single intraoperative image was submitted. Imaging provided for caudal block. RAD/Lumbar Spine 2 or 3 Views IMPRESSION: Intraoperative imaging provided for caudal block. Electronically Signed: Jose Raul Lamas, at 14:41 EST , Service support ,
[2020-04-13] MEDS: Lactated Ringers 1,000 ML 100 ML IV (12:42)
[2020-04-13] MEDS: Lidocaine 0.5% (50 ml) 50 ML Vial (13:13)
[2020-04-13] MEDS: Triamcinolone Acetonide 40 MG/ML Vial (13:13)
[2020-04-13 13:26] VITALS: BP 122/59; BP 142/89; PULSE 103; RESP 16; TEMP 36.7; O2SAT 96
[2020-04-13 13:30] VITALS: BP 122/59; BP 140/87; PULSE 107; RESP 16; O2SAT 95
[2020-04-13 13:35] VITALS: BP 122/59; BP 139/92; PULSE 102; RESP 16; O2SAT 93
[2020-04-13 13:41] VITALS: BP 122/59; BP 159/91; PULSE 98; RESP 16; TEMP 36.5; O2SAT 96
[2020-04-13 19:24] VITALS: BP 144/86; PULSE 96; RESP 16; TEMP 36.6; O2SAT 96
[2020-04-13] MEDS: Senna/Docusate Sodium 1 Tablet 2 TABLET PO (22:45)
[2020-04-13] MEDS: Zolpidem Tartrate 5 MG Tablet PO (22:46)
[2020-04-14] MEDS: BACITRACIN 15 GM Tube 1 APPLIC TOPICAL ×2 (06:49→21:34)
[2020-04-14] MEDS: tiZANidine HCl 2 MG Tablet PO ×3 (06:49→21:35)
[2020-04-14] MEDS: Tamsulosin HCl 0.4 MG Capsule PO (08:22)
[2020-04-14] MEDS: Pregabalin 50 MG Capsule 150 MG PO ×2 (08:22→21:34)
[2020-04-14] MEDS: Lidocaine 5% Patch 1 PATCH TOPICAL (08:22)
[2020-04-14] MEDS: predniSONE 20 MG Tablet 60 MG PO (08:22)
[2020-04-14] MEDS: Pantoprazole Sodium 40 MG Tablet PO (08:23)
[2020-04-14 08:24] VITALS: BP 128/77; PULSE 78; RESP 16; TEMP 36.6; O2SAT 96
[2020-04-14] MEDS: Polyethylene Glycol 3350 17 GM PACKET PO (08:24)
[2020-04-14] MEDS: Senna/Docusate Sodium 1 Tablet 2 TABLET PO ×2 (08:24→21:35)
[2020-04-14] MEDS: Menthol/Lanolin/Calamine/Znox 113 GM Tube 1 APPLIC TOPICAL ×2 (08:25→21:33)
[2020-04-14] MEDS: Nystatin Powder 15gm Bottle 1 APPLIC TOPICAL ×2 (08:26→21:33)
--- NOTE | 2020-04-14 18:13 | NURSING ---
Able to do more in therapy today and pain was better controlled post epidural yesterday. x2 assist stand pivot transfer.
[2020-04-14 21:00] VITALS: BP 140/79; PULSE 95; RESP 20; TEMP 36.6; O2SAT 94
[2020-04-14] MEDS: Zolpidem Tartrate 5 MG Tablet PO (21:34)
[2020-04-15] MEDS: tiZANidine HCl 2 MG Tablet PO ×3 (05:26→21:48)
[2020-04-15] MEDS: BACITRACIN 15 GM Tube 1 APPLIC TOPICAL ×2 (05:26→21:48)
[2020-04-15 07:56] VITALS: BP 142/88; PULSE 72; RESP 16; TEMP 36.4; O2SAT 98
[2020-04-15] MEDS: Lidocaine 5% Patch 1 PATCH TOPICAL (07:57)
[2020-04-15] MEDS: Polyethylene Glycol 3350 17 GM PACKET PO (07:58)
[2020-04-15] MEDS: predniSONE 20 MG Tablet 60 MG PO (07:58)
[2020-04-15] MEDS: Tamsulosin HCl 0.4 MG Capsule PO (07:59)
[2020-04-15] MEDS: Enoxaparin 30 MG/0.3 ML Syringe SC ×2 (08:00→21:48)
[2020-04-15] MEDS: Menthol/Lanolin/Calamine/Znox 113 GM Tube 1 APPLIC TOPICAL ×2 (08:00→21:47)
[2020-04-15] MEDS: Senna/Docusate Sodium 1 Tablet 2 TABLET PO ×2 (08:01→21:48)
[2020-04-15] MEDS: Pantoprazole Sodium 40 MG Tablet PO (08:01)
[2020-04-15] MEDS: Pregabalin 50 MG Capsule 150 MG PO ×2 (08:02→21:47)
[2020-04-15] MEDS: Acetaminophen 500 MG Tablet 1000 MG PO (19:03)
[2020-04-15 21:40] VITALS: PULSE 104; RESP 16; O2SAT 98
[2020-04-15 21:47] VITALS: BP 112/69; PULSE 104; RESP 16; TEMP 36.6; O2SAT 98
[2020-04-15] MEDS: Nystatin Powder 15gm Bottle 1 APPLIC TOPICAL (21:47)
[2020-04-15] MEDS: Zolpidem Tartrate 5 MG Tablet PO (21:48)
[2020-04-16] MEDS: tiZANidine HCl 2 MG Tablet PO ×3 (04:50→21:29)
[2020-04-16] MEDS: BACITRACIN 15 GM Tube 1 APPLIC TOPICAL ×2 (04:53→21:32)
[2020-04-16] MEDS: Senna/Docusate Sodium 1 Tablet 2 TABLET PO (07:29)
[2020-04-16] MEDS: predniSONE 20 MG Tablet 60 MG PO (07:29)
[2020-04-16] MEDS: Tamsulosin HCl 0.4 MG Capsule PO (07:29)
[2020-04-16] MEDS: Lidocaine 5% Patch 1 PATCH TOPICAL (07:30)
[2020-04-16] MEDS: Enoxaparin 30 MG/0.3 ML Syringe SC ×2 (07:31→21:32)
[2020-04-16] MEDS: Pregabalin 50 MG Capsule 150 MG PO ×2 (07:37→21:31)
[2020-04-16] MEDS: Menthol/Lanolin/Calamine/Znox 113 GM Tube 1 APPLIC TOPICAL ×2 (07:39→21:32)
[2020-04-16 08:00] VITALS: BP 130/74; PULSE 71; RESP 16; TEMP 36.6; O2SAT 97
[2020-04-16] MEDS: oxyCODONE 5 MG Tablet 10 MG PO (09:00)
[2020-04-16] MEDS: Acetaminophen 500 MG Tablet 1000 MG PO (09:01)
--- NOTE | 2020-04-16 11:52 | CASEMGMT ---
Addendum entered by Laura Cedillo 04/16/20 14:54: Appeal filed through [place]. CASE # [id number]. Faxed requested clinicals. Will await outcome. Original Note: Social Work Followed up with pt. Pt received epidural 04/14 and has seen success thus far. Pt is able to do more in therapy and for nursing, however, sitting up in still very painful. Pt expressed appealing DC date of 04/19 to get more time now that he is able to do more in therapy. Provided Important Message from Medicare Letter - pt signed. Explained appeal rights. Pt to contact [facility] on this date. SW to continue to follow. Laura Cedillo, STOCK BROKER SUPERVISOR BUS DRIVER
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
[2020-04-16 19:03] VITALS: BP 133/70; PULSE 88; RESP 14; TEMP 36.9; O2SAT 96
[2020-04-17] MEDS: BACITRACIN 15 GM Tube 1 APPLIC TOPICAL ×2 (05:38→21:14)
[2020-04-17] MEDS: tiZANidine HCl 2 MG Tablet PO ×2 (05:38→21:12)
[2020-04-17 05:54] LABS: Hematocrit 42.9 % (40-54); Hemoglobin 13.3 g/dL (13.0-16.5); Mean Corpuscular Hgb 30.1 pg (27.0-32.0); Mean Corpuscular Volume 97.1 fL (80-94); Platelet Count 320 K/mm3 (150-450); RBC Distribution Width CV 13.2 % (11.6-14.6); RBC Distribution Width SD 47.4 fl (35.1-43.9); Red Blood Count 4.42 M/mm3 (4.6-6.2); White Blood Count 21.4 K/mm3 (4.4-11.0)
[2020-04-17 06:21] LABS: ALB/GLOB Ratio 0.9 RATIO (0.9-2.4); AST(SGOT) 46 U/L (15-37); Alanine Aminotransfer ALT/SGPT 260 U/L (16-61); Albumin, Serum 3.2 g/dL (3.2-5.0); Alkaline Phosphatase 112 U/L (45-117); Anion Gap 5 (5-15); BUN 22 mg/dL (7-18); BUN/Creat Ratio 30.7 RATIO (10-20); Calcium,Total 8.9 mg/dL (8.5-10.1); Chloride 101 mmol/L (98-107); Creatinine, Serum 0.72 mg/dL (0.70-1.30); EST Glomerular Filtration Rate 116 mL/min (>60); Est Glom Filt Rate - Afr Amer 140 mL/min (>60); Globulin 3.4 g/dL (2.2-4.2); Glucose 91 mg/dL (74-106); Protein, Total 6.6 g/dL (6.4-8.2); Sodium Level 137 mmol/L (136-145)
[2020-04-17] MEDS: Tamsulosin HCl 0.4 MG Capsule PO (07:58)
[2020-04-17] MEDS: Senna/Docusate Sodium 1 Tablet 2 TABLET PO (07:58)
[2020-04-17] MEDS: Lidocaine 5% Patch 1 PATCH TOPICAL (07:58)
[2020-04-17] MEDS: Pregabalin 50 MG Capsule 150 MG PO ×2 (08:01→21:12)
[2020-04-17] MEDS: Menthol/Lanolin/Calamine/Znox 113 GM Tube 1 APPLIC TOPICAL ×2 (08:20→21:14)
[2020-04-17] MEDS: oxyCODONE 5 MG Tablet 10 MG PO (08:44)
[2020-04-17 08:53] VITALS: PULSE 71; RESP 16; O2SAT 97
[2020-04-17 08:59] VITALS: BP 146/82; PULSE 71; RESP 16; TEMP 37.6; O2SAT 97
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
[2020-04-17 12:50] LABS: GGTP 138 U/L (15-85)
[2020-04-17 12:58] LABS: Mucous, Urine 0 SEEN /hpf (<or=2+)
[2020-04-17 13:07] LABS: Color, Urine Straw (Yellow); Glucose, Dipstick Normal (Normal); Ketone-Dipstick Negative (Negative); Leukocyte Esterase-Dipstick 500 /ul (Negative); Nitrite-Dipstick Positive (Negative); Occult Blood-Urine 25 /ul (Negative); Protein-Dipstick Negative (Negative); Urine Bilirubin Dipstick Negative (Negative); Urine Clarity Clear (Clear); Urine Urobilinogen Normal (Normal); Urine pH 6.5 (5.0 - 8.0)
[2020-04-17 13:21] LABS: White Blood Cells 5-10 SEEN /hpf (0-5)
[2020-04-17 13:22] LABS: Bacteria 4+ /hpf (None Seen); Red Blood Cells-Urine 0-5 SEEN /hpf (0-5); Squamous Epithelial Cells - UA 0-5 SEEN /hpf (0-5)
--- NOTE | 2020-04-17 15:03 | CASEMGMT ---
Social Work [facility] agreed with termination of services. Pt to DC 04/19. Pt filed reconsideration through [facility]. Spoke with pt and explained reconsideration - that it can take up to 14 days and if the appeal is lost, pt is responsible to pay privately. Again offered SNF under . Pt denied SNF and stated most likely with DC home 04/19. Pt will need DME: hospital bed, w/c, left platform WW, BSC, and will order C PT/OT/SN/MARRERO/SW. Provided any updated clinical information to [facility] for recon. Will continue to follow. Laura Cedillo, CITY ROUTE DRIVER COUNTER PROFESSIONAL
--- NOTE | 2020-04-17 15:43 | NURSING ---
Addendum entered by Becky Nielsen 04/17/20 15:47: remove splint to Left wrist. Original Note: Spoke with Roxane from Dr Tao's office. It is ok to remove splint to right wrist and start gentle ROM. Dr Salvador office will call pt at 0800 04/18 for phone visit
--- NOTE | 2020-04-17 16:08 | NURSING ---
Splint removed to patient's left arm/hand per orders. pt tolerated well. Denies pain. resting in bed, call light within reach.
[2020-04-17 21:58] VITALS: BP 128/87; PULSE 78; RESP 16; TEMP 36.8; O2SAT 98
[2020-04-17 22:00] VITALS: PULSE 78; RESP 16; O2SAT 98
[2020-04-18] MEDS: oxyCODONE 5 MG Tablet 10 MG PO ×3 (00:58→13:00)
[2020-04-18] MEDS: Acetaminophen 500 MG Tablet 1000 MG PO (06:06)
[2020-04-18] MEDS: BACITRACIN 15 GM Tube 1 APPLIC TOPICAL (06:06)
[2020-04-18 07:30] VITALS: BP 144/87; PULSE 74; RESP 16; TEMP 36.8; O2SAT 96
[2020-04-18] MEDS: Menthol/Lanolin/Calamine/Znox 113 GM Tube 1 APPLIC TOPICAL ×2 (08:53→22:26)
[2020-04-18] MEDS: Pregabalin 50 MG Capsule 150 MG PO ×2 (08:54→22:20)
[2020-04-18] MEDS: Lidocaine 5% Patch 1 PATCH TOPICAL (08:54)
[2020-04-18] MEDS: Tamsulosin HCl 0.4 MG Capsule PO (08:54)
[2020-04-18] MEDS: Senna/Docusate Sodium 1 Tablet 2 TABLET PO ×2 (08:55→22:20)
[2020-04-18] MEDS: tiZANidine HCl 2 MG Tablet PO ×2 (10:30→22:20)
[2020-04-18] MEDS: Cefadroxil 500 MG CAPSULE 1000 MG PO ×2 (10:30→22:20)
--- NOTE | 2020-04-18 12:30 | NURSING ---
here for family training
--- NOTE | 2020-04-18 13:00 | NURSING ---
instructed on emptying davis cath and care for. denies any questions.
--- NOTE | 2020-04-18 14:32 | NURSING ---
Call made to Dr Temple office and message left regarding if pt needed to follow up.
--- NOTE | 2020-04-18 14:53 | CASEMGMT ---
Social Work came in for therapy family training as pt would like to DC home 04/19. Referred to [facility] for PT/OT/SN/SW. Referred to [facility] for hospital bed, w/c w/elevating leg rests, left platform FWW, 3-in-1 commode. to transport. Plan: DC home with 04/19 Laura Cedillo, CLEOPATRA CLICKER OPERATOR
[2020-04-18 22:45] VITALS: BP 125/67; PULSE 74; PULSE 93; RESP 16; TEMP 36.6; O2SAT 97
[2020-04-19] MEDS: Acetaminophen 500 MG Tablet 1000 MG PO ×2 (05:23→14:04)
[2020-04-19] MEDS: BACITRACIN 15 GM Tube 1 APPLIC TOPICAL (05:25)
[2020-04-19] MEDS: Menthol/Lanolin/Calamine/Znox 113 GM Tube 1 APPLIC TOPICAL (08:02)
[2020-04-19] MEDS: Cefadroxil 500 MG CAPSULE 1000 MG PO (08:03)
[2020-04-19] MEDS: Lidocaine 5% Patch 1 PATCH TOPICAL (08:03)
[2020-04-19] MEDS: Tamsulosin HCl 0.4 MG Capsule PO (08:03)
[2020-04-19] MEDS: tiZANidine HCl 2 MG Tablet PO (08:04)
[2020-04-19] MEDS: Senna/Docusate Sodium 1 Tablet 2 TABLET PO (08:04)
[2020-04-19] MEDS: Pregabalin 50 MG Capsule 150 MG PO (08:19)
[2020-04-19 10:09] VITALS: BP 133/73; PULSE 76; RESP 16; TEMP 36.6; O2SAT 97
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
[2020-04-19] MEDS: oxyCODONE 5 MG Tablet 10 MG PO (14:06)
[2020-04-19 14:43] VITALS: BP 133/73; PULSE 76; RESP 16; TEMP 36.6; O2SAT 97
--- NOTE | 2020-04-19 14:44 | NURSING ---
Discharged home with . Discharged medications, instructions and appointments reviewed with pt and . Denies questions or concerns
[2020-04-23 21:33] LABS: HLA B27 Negative (.)
== END 2020-04-19 14:46 | disposition home health service (06) | DRG 561 ==
PROVIDERS: Anesthesiology Pain Medicine; Admitting Provider Internal Medicine; PCP Family Medicine; Referring Provider Internal Medicine; Visit Provider Internal Medicine
PROC: 3E0S3BZ Introduction of Anesthetic Agent into Epidural Space, Percutaneous Approach (ICD-10-PCS; CPT 62282; principal; 2020-04-13 12:55)
DX: S32.129D Unspecified Zone II fracture of sacrum, subsequent encounter for fracture with routine healing (principal); S22.20XD Unspecified fracture of sternum, subsequent encounter for fracture with routine healing; S32.029D Unspecified fracture of second lumbar vertebra, subsequent encounter for fracture with routine healing; S62.605D Fracture of unspecified phalanx of left ring finger, subsequent encounter for fracture with routine healing; S92.351D Displaced fracture of fifth metatarsal bone, right foot, subsequent encounter for fracture with routine healing; S32.019D Unspecified fracture of first lumbar vertebra, subsequent encounter for fracture with routine healing; S32.049D Unspecified fracture of fourth lumbar vertebra, subsequent encounter for fracture with routine healing; S32.059D Unspecified fracture of fifth lumbar vertebra, subsequent encounter for fracture with routine healing; V49.60XD Unspecified car occupant injured in collision with unspecified motor vehicles in traffic accident, subsequent encounter; Z85.51 Personal history of malignant neoplasm of bladder; S61.012D Laceration without foreign body of left thumb without damage to nail, subsequent encounter; S93.401D Sprain of unspecified ligament of right ankle, subsequent encounter; S76.012D Strain of muscle, fascia and tendon of left hip, subsequent encounter; S36.892D Contusion of other intra-abdominal organs, subsequent encounter; N40.1 Benign prostatic hyperplasia with lower urinary tract symptoms; R33.9 Retention of urine, unspecified; Z87.891 Personal history of nicotine dependence; T38.0X5A Adverse effect of glucocorticoids and synthetic analogues, initial encounter; R73.9 Hyperglycemia, unspecified; M47.9 Spondylosis, unspecified
CPT/HCPCS: 36415; 64490; 72100; 72158; 73130; 73610; 80053; 81001; 81374; 82962; 82977; 83036; 83735; 84100; 85027; 87086; 87088; 87186; 97110; 97116; 97162; 97166; 97530; 97535; 97802; 99251; A9575; J7120; A4216; G0463

== ENCOUNTER 2020-08-02 13:32 | Observation (INO) | payer MEDICARE, OTHER, SELFPAY ==
--- NOTE | 2020-07-27 11:48 | EKG12_ITS ---
Test Reason : PREOP Blood Pressure : / mmHG Vent. Rate : 072 BPM Atrial Rate : 072 BPM P-R Int : 134 ms QRS Dur : 082 ms QT Int : 360 ms P-R-T Axes : 028 -06 022 degrees QTc Int : 394 ms Normal sinus rhythm with sinus arrhythmia Normal ECG Confirmed by CHICO NAM, COLLEEN ([id number]), managing editor RUPALI SIDDIQUI ([id number]) on 07/30/2020 10:21:53 AM Referred By: Venkatesh Townsend Confirmed By:COLLEEN GOLDEN MD
[2020-07-27 12:33] LABS: Absolute Lymphocyte Count 3.68 X10^3/uL (0.83-4.51); Absolute Neutrophil Count 11.5 X10^3/uL (2.0-7.7); Basophil# 0.18 X10^3/uL; Eosinophil# 0.12 X10^3/uL; Eosinophils% 0.7 % (0-5); Hematocrit 47.5 % (40-54); Hemoglobin 15.5 g/dL (13.0-16.5); Lymphocyte # 3.68 X10^3/ul (4.0); Lymphocyte % 21.3 % (19-41); Mean Corp Hgb Conc 32.6 g/dL (32-36); Mean Corpuscular Hgb 30.5 pg (27.0-32.0); Mean Corpuscular Volume 93.3 fL (80-94); Mean Platelet Vol. 9.1 fl (6.2-12.0); Monocyte# 1.07 X10^3/uL; Monocyte% 6.2 % (0-10); NRBC Flagged by Analyzer 0 % (0-5); Neutrophil # 11.45 X10^3/uL (2.7-7.7); Neutrophil % 66.5 % (47-70); Platelet Count 299 K/mm3 (150-450); RBC Distribution Width CV 14.3 % (11.6-14.6); RBC Distribution Width SD 49.1 fl (35.1-43.9); Red Blood Count 5.09 M/mm3 (4.6-6.2); White Blood Count 17.2 K/mm3 (4.4-11.0)
[2020-07-27 12:55] LABS: Magnesium 2.3 mg/dL (1.6-2.6)
[2020-07-27 13:04] LABS: Anion Gap 7 (5-15); BUN 18 mg/dL (7-18); BUN/Creat Ratio 24.9 RATIO (10-20); Calcium,Total 9.3 mg/dL (8.5-10.1); Chloride 102 mmol/L (98-107); Creatinine, Serum 0.72 mg/dL (0.70-1.30); EST Glomerular Filtration Rate 114 mL/min (>60); Est Glom Filt Rate - Afr Amer 139 mL/min (>60); Glucose 93 mg/dL (74-106); Potassium 3.9 mmol/L (3.5-5.1); Sodium Level 138 mmol/L (136-145)
[2020-07-27 13:30] LABS: HIV - WCH Non-Reactive (Nonreactive)
[2020-07-28 05:07] LABS: HEPATITIS B SURFACE AG Negative (Negative); Hepatitis A AB, Total Positive (Negative); Hepatitis A IgM Antibody Negative (Negative); Hepatitis B Core AB IgM Negative (Negative); Hepatitis B Core Ab Total Negative (Negative); Hepatitis C Ab <0.1 s/co ratio (0.0-0.9)
[2020-07-28 09:27] LABS: Hep B Surface Antibodies Non Reactive (.)
[2020-08-02] VITALS (13 sets, daily range): BP systolic 107–139; BP diastolic 64–84; PULSE 66–85; RESP 16–18; TEMP 36.4–37.1; O2SAT 96–100; BMI 26.1
--- NOTE | 2020-08-02 06:00 | HP_ITS ---
Intake Intake Visit Reasons: lumbar spine Accompanied by: Spouse Is patient in pain?: Yes Allergies No Known Allergies Allergy (Verified 07/27/20 10:57) Medications Pregabalin [Lyrica] 150 mg PO BID #60 cap 04/19/20 [Rx Confirmed 07/27/20] oxycodone-acetaminophen 5 mg-325 mg tablet 1 tab PO TID PRN 07/11/20 [History Confirmed 07/27/20] Docusate Sodium [Colace] 100 mg PO DAILY 07/20/20 [History Confirmed 07/27/20] Lidocaine [Salonpas] 1 applicatio TOPICAL DAILY PRN 07/20/20 [History Confirmed 07/27/20] Multivitamin 1 ea PO DAILY 07/20/20 [History Confirmed 07/27/20] PFSH Surgical History (Updated 07/11/20 @ 11:20 by Nasima Arreola) History of cholecystectomy (Acute) Social History (Updated 07/27/20 @ 11:[address] Venkatesh Townsend DO) Smoking Status: Former smoker HPI lumbar spine : Surgical H&P: Yes Details: Parts of this documentation were recorded by a scribe, this documentation accurately reflects the service provided and the decisions made by me, Dr. Venkatesh Townsend DO 07/27/20 1051. YELITZA DE LA CRUZ is a 70 year old M here today for preop appt, DOS: 08/02/20. Patient denies any medical changes since his last office visit. Remington is here for his preop. We talked about his surgery scheduled for next week 6 days from today. Is scheduled for laminectomy L5-S1 on the left side. 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 This is what we are scheduled to do. We spoke of possible risks and complications associated with surgery including possibility of , paralysis infection meningitis failure to relieve the symptoms blood clot in the legs blood clot in the lungs microinfarction stroke dural leak among others he also understands that there is no guarantee that his pain in his buttocks and in the back of his thigh will go away. Presumptively this is the S1 nerve root. I will see him again at surgery next week. Assessment & Plan Problems 1. Radicular pain of lower extremity M54.10 Coding Level of Care Code Off vis,est,level 2 Diagnoses Radicular pain of lower extremity M54.10 Time Spent (min) 20
[2020-08-02] MEDS: Lactated Ringers 1,000 ML 75 ML IV ×3 (06:20→12:13)
[2020-08-02] MEDS: Acetaminophen 500 MG Tablet 1000 MG PO (06:20)
[2020-08-02 06:56] LABS: Bedside Glucose 125 mg/dL (70-110)
[2020-08-02] MEDS: Cefazolin 2 GM in 0.9% Normal Saline 100 ML IV (07:22)
--- NOTE | 2020-08-02 07:30 | RAD_ITS ---
STUDY: X-RAY - LUMBAR SPINE REASON FOR EXAM: Male, 70 years old. LAMINECTOMY L5-S1,LEFT TECHNIQUE: 1 view(s) of the lumbar spine were obtained. COMPARISON: None FINDINGS: Intraoperative imaging for localization. The surgical instrument is seen along the posterior aspect of the L5-S1 level. Grade 1 anterior listhesis of L5 on S1. RAD/Spine 1 View Any Level IMPRESSION: Localization instrument is seen overlying the posterior aspect of the L5-S1 level. Electronically Signed: Jose Raul Lamas MD at 8:55 EDT , Service support ,
[2020-08-02] MEDS: Thrombin 5,000 IU Kit (PSA) 5,000 IU Vial 5000 IU TOPICAL ×2 (08:30→09:12)
--- NOTE | 2020-08-02 10:47 | OP.PCM_ITS ---
Report of Operation Date of Procedure: 08/02/20 Description of Surgical Findings:: Preoperative diagnosis: Severe left S1 radiculopathy in Brian to grade 1 spondylolisthesis Postoperative diagnoses: The same Procedure was lumbar laminectomy L5-S1 with wide decompression and foraminotomies left side Surgeon: Dr. Townsend reference library assistant:Ritesh SMITH Anesthesia: General endotracheal anesthesia administered by [facility] Estimated blood loss: 30 cc Drains: Medium Hemovac Complications: None Procedure: Patient was taken to the OR where he was placed under general endotracheal anesthesia while in the supine position neuro monitoring placed her anterior leads we then moved the patient onto the Marvel frame in the prone position to protect his bony prominences the genitalia brachial plexus bilaterally ulnar nerves of both elbows and the cervical spine and facial features. Neuro monitoring finished the posterior leads. The back was then prepped and draped standard fashion. I then made a longitudinal incision centered over L5-S1 subcutaneous tissues were incised length of the skin incision. I opened the lumbar fascia using cautery to the left of the spinous processes and elevated the paravertebral muscles off the lamina of L5 which of course was loose and the lamina of S1 intraoperative x-ray was taken with a marker in place to assure that we were indeed at that level which we were. I then began release of the ligamentum flavum off the underside of the lamina of L5 this was done using curettes. The laminectomy was carried out it was very small lamina and we went all the way through we then loosened up the lateral side which of course was already loose and using curettes I slowly released it off including the facet of 5 off of the facet of S1. Was a tremendous amount of scar tissue around the base of the S1 nerve root this was slowly released off the dura and base of the nerve root and removed with Kerrison rongeurs. Move the ligamentum flavum in retrograde fashion with a 45 degree Kerrison rongeurs. I then identified the very swollen S1 nerve root and perform foraminotomies. Bleeders were controlled with bone wax and thrombin-soaked Gelfoam. We thoroughly irrigated with copious amounts of sterile saline every 10 or 15 minutes in the course of the case. Once all the scar tissue and fibrous tissue was removed the nerve was free. We then thoroughly irrigated with copious amounts of sterile saline the last time thrombin was packed in the epidural space and all around until we had excellent hemostasis we then placed an amnionic membrane directly over the exposed dura and nerve root Gelfoam was placed over the top of this and a medium Hemovac was inserted. I then closed the lumbar fascia using [id number] suture with #1 Vicryl followed by closure of subcutaneous tissue with 2-0 Vicryl in interrupted fashion and skin was approximated using skin clips. Did tie the Hemovac drain to the skin to prevent its accidental removal. Applied steriles dressings we then moved him to his hospital bed and recovered him in the OR he was then taken to recovery in satisfactory condition this interoperative summary on Celia Bazzi is Dr. Townsend dictating.
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
[2020-08-02] MEDS: Morphine 4 MG/ML Syringe IV ×2 (14:26→21:31)
[2020-08-02] MEDS: diazePAM 5 MG Tablet PO (14:26)
[2020-08-02] MEDS: 0.9% Saline Lock 10 ML Syringe IV ×2 (14:27→21:31)
[2020-08-02] MEDS: Cefazolin 1 GM/50 ML BAG IV ×2 (15:29→23:43)
[2020-08-02] MEDS: Ensure Surgery 237 ML LIQUID PO (17:01)
[2020-08-02] MEDS: traMADol 50 MG Tablet PO (17:01)
[2020-08-02] MEDS: Pregabalin 50 MG Capsule 150 MG PO (18:41)
[2020-08-02 19:52] LABS: Hematocrit 37.3 % (40-54); Hemoglobin 12.1 g/dL (13.0-16.5)
[2020-08-02] MEDS: Famotidine 20 MG Tablet PO (21:27)
[2020-08-02] MEDS: Senna/Docusate Sodium 1 Tablet 2 TABLET PO (21:28)
[2020-08-03] VITALS (7 sets, daily range): BP systolic 106–120; BP diastolic 62–72; PULSE 68–92; RESP 16–20; TEMP 36.7–37.5; O2SAT 85–98
[2020-08-03] MEDS: traMADol 50 MG Tablet PO ×3 (04:57→16:08)
[2020-08-03 05:41] LABS: Absolute Lymphocyte Count 2.69 X10^3/uL (0.83-4.51); Absolute Neutrophil Count 11.6 X10^3/uL (2.0-7.7); Basophil# 0.05 X10^3/uL; Basophil% 0.3 % (0-1); Eosinophil# 0.13 X10^3/uL; Eosinophils% 0.8 % (0-5); Hematocrit 37.6 % (40-54); Hemoglobin 12.2 g/dL (13.0-16.5); Lymphocyte # 2.69 X10^3/ul (4.0); Lymphocyte % 17.2 % (19-41); Mean Corp Hgb Conc 32.4 g/dL (32-36); Mean Corpuscular Volume 95.7 fL (80-94); Mean Platelet Vol. 9.1 fl (6.2-12.0); Monocyte# 0.99 X10^3/uL; Monocyte% 6.3 % (0-10); NRBC Flagged by Analyzer 0 % (0-5); Neutrophil # 11.55 X10^3/uL (2.7-7.7); Neutrophil % 74.1 % (47-70); Platelet Count 218 K/mm3 (150-450); RBC Distribution Width CV 14.6 % (11.6-14.6); RBC Distribution Width SD 51.1 fl (35.1-43.9); Red Blood Count 3.93 M/mm3 (4.6-6.2); White Blood Count 15.6 K/mm3 (4.4-11.0)
[2020-08-03 05:55] LABS: Anion Gap 3 (5-15); BUN 10 mg/dL (7-18); Calcium,Total 8.5 mg/dL (8.5-10.1); Chloride 103 mmol/L (98-107); Creatinine, Serum 0.67 mg/dL (0.70-1.30); EST Glomerular Filtration Rate 126 mL/min (>60); Est Glom Filt Rate - Afr Amer 152 mL/min (>60); Estimated Creatinine Clearance 69.72 ml/min; Glucose 102 mg/dL (74-106); Potassium 4.3 mmol/L (3.5-5.1); Sodium Level 138 mmol/L (136-145)
[2020-08-03] MEDS: Pregabalin 50 MG Capsule 150 MG PO (06:29)
[2020-08-03] MEDS: Ensure Surgery 237 ML LIQUID PO ×3 (09:27→16:08)
[2020-08-03] MEDS: Famotidine 20 MG Tablet PO (09:27)
[2020-08-03] MEDS: Senna/Docusate Sodium 1 Tablet 2 TABLET PO (09:27)
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
--- NOTE | 2020-08-03 12:16 | PN_ITS ---
Patient Problems: Active and Suspected Problems Severe left S1 radiculopathy (Acute) Fracture of phalanx of left ring finger (Acute) Laceration of left thumb (Acute) Right ankle sprain (Acute) Fracture of fifth metatarsal bone of right foot (Acute) Lumbar transverse process fracture (Acute) multiple fractures L1/L2/L4/L5 transverse processes and a S2 fracture BPH (benign prostatic hyperplasia) (Suspected) Subjective: Patient was seen and examined today, he is sitting on the side of the bed getting ready to use a walker to go to the restroom. Patient states that he has had less leg pain since the surgery. - Physical Exam Vitals/I&O's: Vital Signs Temp Pulse Resp BP Pulse Ox 98.0 F 86 16 108/63 97 08/03/20 11:15 08/03/20 11:15 08/03/20 11:15 08/03/20 11:15 08/03/20 11:15 Oxygen Flow Rate (L/min) 4 Oxygen Delivery Method Room Air Weight: 80.2 kg Body Mass Index (BMI) 26.1 Intake and Output for Last 24 Hours 08/01/20 08/02/20 08/03/20 23:59 23:59 23:59 Intake Total 4298.0 / 4298.0 1977.5 / 1977. Output Total 3320 / 3320 1055 / 1055 Balance 978.0 / 978.0 923.5 / 923.5 General: Alert, Oriented x3, Cooperative, No apparent distress, Well developed, Well nourished HEENT: Atraumatic, PERRLA, EOMI, Normocephalic Oral: Moist Mucosa Neck: Supple, No JVD, Trachea Midline, Thyroid Normal Size and Texture Lungs: Clear to auscultation, Normal air movement, No rhonchi, No wheeze, No rales Cardiovascular: Regular rate, Regular Rhythm, Normal S1, Normal S2, No murmurs, PMI Normal, No rub noted, No Gallop Abdomen: Bowel Sounds Present, Soft, Non Tender, Non-Distended Extremities: No clubbing, No cyanosis, No edema, Capillary Refill Less than 3 Seconds Skin: No rashes Neurological: Cranial nerves II-XII grossly intact, Neuro grossly intact Psych/Mental Status: Normal Affect, Appropriate, Alert and oriented to time, place, person, mood and affect Microbiology Past 72 Hours 08/01/20 11:10 Interface Orders SARS-CoV-2 Antigen (Rapid) - Final Laboratory Results 08/02/20 19:24: Hgb 12.1 L, Hct 37.3 L 08/03/20 05:16: WBC 15.6 H, RBC 3.93 L, Hgb 12.2 L, Hct 37.6 L, MCV 95.7 H, MCH 31.0, MCHC 32.4, RDW Std Deviation 51.1 H, RDW Coeff of Redd 14.6, Plt Count 218, MPV 9.1, Immature Gran % (Auto) 1.300 H, Neut % (Auto) 74.1 H, Lymph % (Auto) 17.2 L, [place] % (Auto) 6.3, Eos % (Auto) 0.8, Baso % (Auto) 0.3, Absolute Neuts (auto) 11.6 H, Absolute Lymphs (auto) 2.69, Nucleated RBC % 0 08/03/20 05:16: Sodium 138, Potassium 4.3, Chloride 103, Carbon Dioxide 32.0, Anion Gap 3 L, BUN 10, Creatinine 0.67 L, Estim Creat Clear Calc 69.72, Est GFR (MDRD) Af Amer 152, Est GFR (MDRD) Non-Af 126, BUN/Creatinine Ratio 15.0, Glucose 102, Calcium 8.5 Current Medications Diazepam (Diazepam 5 Mg Tablet) 5 mg PO Q6H PRN PRN PRN Reason: Muscle Spasms Last Admin: 08/02/20 14:26 Dose: 5 mg Documented by: Enteral Nutritional Formula (Ensure Surgery 237 Ml Liquid) 237 ml PO TIDCM [facility] Last Admin: 08/03/20 11:17 Dose: 237 ml Documented by: Famotidine (Famotidine 20 Mg Tablet) 20 mg PO BID [facility] Last Admin: 08/03/20 09:27 Dose: 20 mg Documented by: Morphine Sulfate (Morphine 4 Mg/Ml Syringe) 2 - 4 mg IV Q2H PRN PRN PRN Reason: Pain Score 6-10 Last Admin: 08/02/20 21:31 Dose: 4 mg Documented by: Ondansetron HCl (Ondansetron 4 Mg/2 Ml Vial) 4 mg IV Q8H PRN PRN PRN Reason: NAUSEA Pregabalin (Pregabalin 50 Mg Capsule) 150 mg PO BID@0700,1900 [facility] Last Admin: 08/03/20 06:29 Dose: 150 mg Documented by: Senna/Docusate Sodium (Senna/Docusate Sodium 1 Tablet) 2 tablet PO BID [facility] Last Admin: 08/03/20 09:27 Dose: 2 tablet Documented by: Sodium Chloride (0.9% Saline Lock 10 Ml Syringe) 10 - 40 ml IV UD PRN PRN Reason: SALINE FLUSH Last Admin: 08/02/20 21:31 Dose: 10 ml Documented by: Tramadol HCl (Tramadol 50 Mg Tablet) 50 - 100 mg PO Q6H PRN PRN PRN Reason: Pain Score 4-5 Last Admin: 08/03/20 11:17 Dose: 100 mg Documented by: Zolpidem Tartrate (Zolpidem Tartrate 5 Mg Tablet) 5 mg PO QHS PRN PRN PRN Reason: INSOMNIA Medical Necessity - Tobacco Use Smoking Status: Former smoker - Quit 15 years ago Tobacco Use: Non-smoker Assessment/Plan All Active Problems Severe left S1 radiculopathy (Acute) Fracture of phalanx of left ring finger (Acute) Laceration of left thumb (Acute) Right ankle sprain (Acute) Fracture of fifth metatarsal bone of right foot (Acute) Lumbar transverse process fracture (Acute) Presence of indwelling Hobbs catheter (Resolved) Urine retention (Resolved) #1 Left S1 radiculopathy-status post lumbar laminectomy L5 and S1 with wide decompression and foraminotomies left side-patient appears medically stable postop at this time #2 leukocytosis-etiology unclear, patient has had a history of leukocytosis dating back to March 2020, he will need follow-up after discharge (repeat CBC) #3 BPH #4 spondylolisthesis at L5-S1 OBSV E&M: [id number] Subsequent observation care L3
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
== END 2020-08-03 16:45 | disposition home or self-care (01) ==
LOC: SDC 13:58 → MS3 13:58
PROVIDERS: Anesthesiology; Internal Medicine; Admitting Provider Orthopaedic Surgery; PCP Family Medicine; Referring Provider Orthopaedic Surgery; Visit Provider Internal Medicine
PROC: (CPT 63030; principal; 2020-08-02 07:00)
DX: M43.18 Spondylolisthesis, sacral and sacrococcygeal region (principal); M54.18 Radiculopathy, sacral and sacrococcygeal region; N40.0 Benign prostatic hyperplasia without lower urinary tract symptoms; Z79.899 Other long term (current) drug therapy; Z87.891 Personal history of nicotine dependence; Z20.828 Contact with and (suspected) exposure to other viral communicable diseases; Z85.51 Personal history of malignant neoplasm of bladder; Z87.440 Personal history of urinary (tract) infections; Z87.828 Personal history of other (healed) physical injury and trauma
CPT/HCPCS: 00670; 63047; 36415; 72020; 80048; 82962; 83735; 85014; 85018; 85025; 86703; 86704; 86705; 86706; 86708; 86709; 86803; 87077; 87081; 87340; 87426; 93005; 96361; 96365; 96366; 96375; 96376; 97162; 97530; 99218; C9803; J7120; A4216; G0378; G0379; J2405; J3490

== ENCOUNTER 2021-02-19 10:00 | Outpatient (RCR) | payer MEDICARE, OTHER, SELFPAY ==
[2020-10-24 13:00] VITALS: BMI 26.1
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
--- NOTE | 2021-02-19 10:25 | HP.OTDCSUM_ITS ---
It has been my pleasure to treat YELITZA DE LA CRUZ Jr. under orders from Dr. Simeon Abad MD, for the diagnosis of left RF closed displaced proximal phalanx fx for a total of 6 visit(s). Please see the following information for a summary of their discharge status. % Improvement: 15 Objective/Function: pt demo with initial 35* PIP flex of left RF-. therapy has gotten pt to 45* PIP flex but unable to keep this ROM. pt demo a left industrial engineering manager strength 60# a increase from 40#. pt agree to continue with a HEP to assist with what gains and strength will cont. to return. Patient Goals: Regain Mobility, Regain Strength Goal:: pt will demo a increase in left industrial engineering manager strength by 20# to increase pts ind. with ADls and IADLs cy d/c Goal:: Pt will demo a increase in left RF PIP flex to 70* or greater to increase pts ind. with composite fist for ADLs and IADLs by d/c Goal:: pt will report no pain with use of left hand with ADLs and IADls by d.c Plan: D/C with HEP Discharge Comments: pt was seen for 6 OT visits - therapy challenged pt with PROM, AROM, blocking and PRE to increase functional strength of left hand for ADls and IADls. pt has pleated with progress and will cont. with HEP - pt agrees to POC. If there are questions or concerns regarding this patient's occupational therapy, please fell free to call me at [phone]. Thank you for the referral of this patient. Sincerely, Alysa Díaz, OTR/L, CHT
== END 2021-02-19 19:00 | disposition home or self-care (01) ==
LOC: OT 10:00
PROVIDERS: PCP Family Medicine; Referring Provider Orthopaedic Surgery; Visit Provider Orthopaedic Surgery
DX: S62.615D Displaced fracture of proximal phalanx of left ring finger, subsequent encounter for fracture with routine healing (principal); X58.XXXD Exposure to other specified factors, subsequent encounter
CPT/HCPCS: 97110; 97140; 97165; 97166; 97530

== ENCOUNTER → 2022-02-12 | Outpatient (CLI) | payer MEDICARE, OTHER, SELFPAY ==
--- NOTE | 2022-02-12 09:44 | CDU_ITS ---
Reason For Study: AMAUROSIS FUGAX Rt. Velocities/BP Lt. Velocities/BP Prox CCA 80.9/11.9 cm/sec. Prox CCA 71.0/18.2 cm/sec. Mid CCA 57.2/10.0 cm/sec. Mid CCA 54.6/17.1 cm/sec. Dist CCA 78.0/17.6 cm/sec. Dist CCA 44.1/13.6 cm/sec. Prox ICA 42.4/13.9 cm/sec. Prox ICA 50.1/17.1 cm/sec. Mid ICA 54.5/18.9 cm/sec. Mid ICA 43.5/20.4 cm/sec. Dist ICA 71.2/26.7 cm/sec. Dist ICA 52.5/19.1 cm/sec. Rt. ICA/CCA = 1.2. Lt. ICA/CCA = 1.0. Prox ECA 123.5/8.4 cm/sec. Prox ECA 96.3/11.7 cm/sec. Rt. Vert. 22.2/5.5 cm/sec. Lt. Vert. 38.4/13.1 cm/sec. Right Extracranial There is intimal thickening but no significant atherosclerotic plaque noted in the right common carotid artery. There is heterogeneous, irregular atherosclerotic plaque noted in the right internal carotid artery. There is heterogeneous, irregular atherosclerotic plaque noted in the right external carotid artery. Antegrade flow is noted in the right vertebral artery. Left Extracranial There is intimal thickening but no significant atherosclerotic plaque noted in the left common carotid artery. There is homogeneous, smooth atherosclerotic plaque noted in the left internal carotid artery. There is heterogeneous, irregular atherosclerotic plaque noted in the left external carotid artery. Antegrade flow is noted in the left vertebral artery. Procedure Carotid Duplex 10400. This is a Carotid Duplex examination using B-mode, color flow and specral Doppler. The exam was diagnostic. Exam performed in department. VL/Carotid Duplex Ultrasound Interpretation Summary Mild (<50%) stenosis right extracranial internal carotid. Mild (<50%) stenosis left extracranial internal carotid. Flow within the vertebral arteries is antegrade bilaterally. Ordering Physician: Ottoniel Villanueva Referring Physician: Ottoniel Villanueva Performed By: Leobardo Meraz RVT
== END | disposition home or self-care (01) ==
PROVIDERS: Referring Provider Ophthalmology; Visit Provider Ophthalmology
DX: G45.3 Amaurosis fugax (principal)
CPT/HCPCS: 93880

== ENCOUNTER → 2023-12-14 | Outpatient (CLI) | payer MEDICARE, OTHER, SELFPAY ==
[2023-12-14 10:16] LABS: Hematocrit 46.1 % (40-54); Mean Corp Hgb Conc 32.5 g/dL (32-36); Mean Corpuscular Hgb 30.2 pg (27.0-32.0); Mean Corpuscular Volume 92.9 fL (80-94); Mean Platelet Vol. 9.4 fl (6.2-12.0); Platelet Count 240 K/mm3 (150-450); RBC Distribution Width CV 13.1 % (11.6-14.6); RBC Distribution Width SD 44.5 fl (35.1-43.9); Red Blood Count 4.96 M/mm3 (4.6-6.2); White Blood Count 11.9 K/mm3 (4.4-11.0)
[2023-12-14 10:41] LABS: ALB/GLOB Ratio 1.1 RATIO (0.9-2.4); AST(SGOT) 22 U/L (15-37); Alanine Aminotransfer ALT/SGPT 25 U/L (16-61); Albumin, Serum 3.9 g/dL (3.2-5.0); Alkaline Phosphatase 76 U/L (45-117); Anion Gap 5 (5-15); BUN 16 mg/dL (7-18); Chloride 104 mmol/L (98-107); Creatinine, Serum 1.07 mg/dL (0.70-1.30); EST Glomerular Filtration Rate 72 mL/min (>60); Est Glom Filt Rate - Afr Amer 87 mL/min (>60); Globulin 3.7 g/dL (2.2-4.2); Glucose 114 mg/dL (74-106); Potassium 4.4 mmol/L (3.5-5.1); Protein, Total 7.6 g/dL (6.4-8.2); Sodium Level 137 mmol/L (136-145); Thyroid Stim Hormone (TSH) 1.93 uIU/mL (0.358-3.74)
== END | disposition home or self-care (01) ==
LOC: MTLAB 09:03
PROVIDERS: PCP Family Medicine; Referring Provider Psychiatry & Neurology Neurology; Visit Provider Psychiatry & Neurology Neurology
DX: R25.1 Tremor, unspecified (principal)
CPT/HCPCS: 36415; 80053; 84443; 85027

== ENCOUNTER → 2023-12-30 | Outpatient (CLI) | payer MEDICARE, OTHER, SELFPAY ==
--- NOTE | 2023-12-30 07:15 | MRI_ITS ---
STUDY: MRI BRAIN WITHOUT CONTRAST REASON FOR EXAM: Male, 73 years old. Parkinson''s disease, tremors x 18 mons TECHNIQUE: Standardized multiplanar fat and water weighted pulse sequences were obtained. COMPARISON: CT 03/27/2020 FINDINGS: There is mild cerebral atrophy with widening of the extra-axial spaces and ventricular dilatation. There are a limited number of small white matter hyperintensities, distributed throughout the deep white matter tracts of the cerebral hemispheres, consistent with mild chronic white matter ischemic changes. There is no evidence for recent intracranial ischemia or other cause of cytotoxic edema on diffusion weighted imaging (DWI). Normal T2* images of the brain without demonstrated susceptibility artifact. There is no demonstrated hemosiderin stain. Mid brain iron stores are preserved. Normal bilateral basal ganglia. Normal thalami. There is no extra-axial fluid accumulation. Normal flow voids within the major intracranial circulation suggesting patency by spin echo criteria. Normal sella turcica, pituitary gland, infundibular stalk, optic chiasm and hypothalamus. Normal tectal plate and pineal gland. Normal midbrain, joe and medulla. Normal cerebellum. Normal basal cisterns. Normal bilateral temporal bones. Normal bilateral internal auditory canals. No demonstrated orbital abnormality, within the constraints of a routine brain study. Normal visualized paranasal sinuses. Normal calvarium and skull base. Normal visualized soft tissue structures. Normal visualized upper cervical spine. MRI/Brain without Contrast IMPRESSION: Normal unenhanced MRI of the brain. Electronically Signed: Morteza Santos MD at 10:50 EDT ,
== END | disposition home or self-care (01) ==
LOC: MRI 07:09
PROVIDERS: PCP Family Medicine; Referring Provider Psychiatry & Neurology Neurology; Visit Provider Psychiatry & Neurology Neurology
DX: G20.A1 Parkinson's disease without dyskinesia, without mention of fluctuations (principal)
CPT/HCPCS: 70551